=== PATIENT | male | born 1990 | race Caucasian/White ===

== ENCOUNTER 2017-07-07 11:03 | Emergency (ER) | payer OTHER ==
[~2017-07-07] VITALS: Ht 180.3 cm; Wt 127.5 kg
[2017-07-07 11:23] VITALS: Ht 180.3 cm; Wt 127.5 kg
[2017-07-07 14:34] LABS: BASOPHIL % 0.3 % (0-2); PLATELET COUNT 234 x10^3mcL (130-400); RED CELL DISTRIBUTION WIDTH 12.9 % (11.5-14.5)
[2017-07-07 16:30] VITALS: BP 138/83
== END 2017-07-07 16:30 | disposition home or self-care (01) ==
LOC: ED 11:03
PROVIDERS: Emergency Medicine Emergency Medical Services
DX: J36 Peritonsillar abscess (principal)
CPT/HCPCS: J0561; J1100; J1885; J2001; Q9967